=== PATIENT | female | born 1950 | race Caucasian/White ===

== ENCOUNTER → 2018-04-28 | Outpatient (CLI) | payer BC ==
--- NOTE | 2018-04-28 15:10 | KCIC ---
EXAM: Dual energy x-ray absorptiometry (DEXA). HISTORY: Postmenopausal female presents for osteoporosis screening. COMPARISON: None. TECHNIQUE: Dual energy x-ray absorptiometry of the lumbar spine and left hip was performed. Calculation of bone mineral density based on standard deviations above or below the expected young adult normal value (T-score) was completed. FINDINGS: The average bone mineral density in the 1st through 4th lumbar vertebrae is 1.095 g/cmxcm, corresponding with a T-score of 0.4. The average total bone mineral density in the left hip is 0.875 g/cmxcm, corresponding with a T-score of -0.6. IMPRESSION: Normal bone mineral density. Note: Definitions established by the World Health Organization: 1. Normal: T-score is -1.0 or above. 2. Osteopenia: T-score is between -1.0 and -2.5 . 3. Osteoporosis: T-score is -2.5 or below. Electronically signed by: Graciela Flanagan MD (04/28/2018 3:06 PM) [email or web address]
--- NOTE | 2018-04-28 16:21 | KCIC ---
Bilateral digital screening mammograms with 3-D tomosynthesis: Reason for examination: Routine screening. Comparison is made to previous studies dated 08/18/2012 and 08/05/2012. Bilateral mammograms in CC and oblique projections were obtained with 2-D imaging and 3-D tomosynthesis imaging on a Siemens Inspiration unit and reviewed on the workstation. Interpretation was made with the benefit of CAD. The skin and nipples show no abnormalities. No abnormal axillary lymph nodes are seen. The breast parenchyma is heterogeneously dense. (Breast density: Category C.) There continues to be a small nodule consistent with an intramammary lymph node at the 10:00 B position of the right breast. There are no new dominant masses, suspicious calcifications or architectural distortion. Impression: No evidence of malignancy. Recommend routine screening. Your patient's mammogram demonstrates that she has dense breast tissue (breast density category C or D), which could hide abnormalities, and if she has other risk factors for breast cancer that have been identified, she might benefit from supplemental screening tests that may be suggested by you as her ordering physician. Dense breast tissue, in and of itself, is a relatively common condition. Therefore, this information is not provided to cause undue concern, but rather to raise your awareness and to promote discussion with your patient regarding the presence of other risk factors, in addition to dense breast tissue. Your patient's mammography results will be sent to her. BI-RAD Category 2: Benign. "Our facility is accredited by the [employer] Mammography [employer]." This patient's information has been entered into a reminder system for the patient to be notified with the results of her examination and a target date for the next mammogram. Electronically signed by: Farnaz Holley MD (04/28/2018 4:17 PM) [facility]
== END | disposition home or self-care (01) ==
LOC: KCIC DEXA 13:50
PROVIDERS: ATTEND Family Medicine
DX: Z12.31 Encounter for screening mammogram for malignant neoplasm of breast (principal); Z13.820 Encounter for screening for osteoporosis; Z78.0 Asymptomatic menopausal state
CPT/HCPCS: 77063; 77067; 77080

== ENCOUNTER → 2019-10-12 | Outpatient (CLI) | payer BC ==
--- NOTE | 2019-10-12 14:27 | KCIC ---
Bilateral digital screening mammograms Reason for examination: Routine screening Comparison is made to previous study dated mammogram April 28, 2018 and priors Routine CC and MLO digital views obtained. Interpretation was made with the benefit of CAD. The skin and nipples show no abnormalities. No abnormal axillary lymph nodes are seen. The breast parenchyma is heterogeneously dense. (Breast density: Category C.) There are no suspicious masses, suspicious calcifications or architectural distortion. Benign calcifications. At the left outer breast 5 cm from the nipple there is mild glandular nodular asymmetry stable to prior studies. On the left MLO view retroareolar breast 9 cm from the nipple there is a subcentimeter nodular asymmetry, which may correspond to a subtle nodular density on the CC view. Impression: Possible small nodular asymmetry of the left breast. Further assessment with a diagnostic mammography with ML view, and spot compression CC and MLO views, as well as left breast ultrasound is advised. ?Your patient's mammogram demonstrates that she has dense breast tissue (breast density category C or D), which could hide abnormalities, and if she has other risk factors for breast cancer that have been identified, she might benefit from supplemental screening tests that may be suggested by you as her ordering physician. Dense breast tissue, in and of itself, is a relatively common condition. Therefore, this information is not provided to cause undue concern, but rather to raise your awareness and to promote discussion with your patient regarding the presence of other risk factors, in addition to dense breast tissue. Your patient's mammography results will be sent to her. BI-RAD Category 0: Complete examination. "Our facility is accredited by the [employer] Mammography [employer]." This patient's information has been entered into a reminder system for the patient to be notified with the results of her examination and a target date for the next mammogram. Electronically signed by: Caden Abdalla MD (10/12/2019 2:24 PM) [email or web address]
== END | disposition home or self-care (01) ==
LOC: KCIC MAMMO 13:01
PROVIDERS: ATTEND Family Medicine
DX: Z12.31 Encounter for screening mammogram for malignant neoplasm of breast (principal); N64.89 Other specified disorders of breast
CPT/HCPCS: 77067

== ENCOUNTER → 2019-11-16 | Outpatient (CLI) | payer BC ==
--- NOTE | 2019-11-16 17:13 | KCIC ---
Left breast diagnostic digital mammograms: Reason for examination: Parenchymal asymmetry on screening mammographic exam. Comparison is made to previous examination dated 10/12/2019. True lateral and coned compression views in CC and oblique projections were obtained. The nodularity seen posterior superiorly in the left breast persists on lateral view but appears to improve with coned compression views. This probably represents superimposed tissues but further evaluation with ultrasound will follow. IMPRESSION: Asymmetry persists on lateral projection but probably represents superimposed tissues. Ultrasound to follow. BI-RADS Category 0: Incomplete. Needs additional imaging evaluation. Left breast ultrasound: Left whole breast ultrasound including evaluation of all 4 quadrants and the retroareolar and axillary regions of the left breast was performed. There is some patchy fibrocystic type change in the 4:00 position 5 cm from the nipple. At the 5:00 position 3 cm from the nipple however there is a hypoechoic 8.2 mm nodule with some irregular margination and some mild posterior acoustic shadowing. Further evaluation with ultrasound-guided biopsy should be considered. There appears to be some cystic ductal ectasia in the retroareolar position. No abnormality seen to correspond to the area of asymmetry seen posteriorly and this probably reflects some superimposition of tissues mammographically. No suspicious appearing lymph nodes are seen in the axilla. IMPRESSION: Small 8.2 mm nodule at the 5:00 position 3 cm from the nipple with irregular margination suggestion of some mild posterior acoustic enhancement. Small malignancy cannot be excluded and further evaluation with ultrasound-guided biopsy is recommended. BI-RADS Category 4: Suspicious. These findings were discussed with the patient and the patient was instructed to follow-up with her physician and the patient's physician, Dr. Yuan, will be notified about these findings when the office reopens in the morning. "Our facility is accredited by the [employer] Mammography [employer]." This patient's information has been entered into a reminder system for the patient to be notified with the results of her examination and a target date for the next mammogram. Electronically signed by: Farnaz Holley MD (11/16/2019 5:10 PM) [email or web address]
== END | disposition home or self-care (01) ==
LOC: KCIC MAMMO 09:34
PROVIDERS: ATTEND Family Medicine
DX: R92.8 Other abnormal and inconclusive findings on diagnostic imaging of breast (principal); N63.23 Unspecified lump in the left breast, lower outer quadrant
CPT/HCPCS: 76641; 77065

== ENCOUNTER → 2020-06-06 | Outpatient (CLI) | payer OTHER, MEDICARE ==
--- NOTE | 2020-06-06 17:13 | KCIC ---
Left breast diagnostic digital mammograms: Reason for examination: Follow-up benign biopsy. Comparison is made to previous studies dated back to 04/28/2018. Interpretation was made with the benefit of CAD. The skin and nipple show no abnormalities. No abnormal axillary lymph nodes are seen. The breast pare nchyma is heterogeneously dense. (Breast density: Category C.) There is a biopsy clip in the 3:00 pos ition anteriorly in the left breast. There are no new dominant masses, suspicious calcifications or a rchitectural distortion. Impression: No evidence of malignancy. Ultrasound to follow. Your patient's mammogram demonstrates that she has dense breast tissue (breast density category C or D), which could hide abnormalities, and if she has other risk factors for breast cancer that have bee n identified, she might benefit from supplemental screening tests that may be suggested by you as her ordering physician. Dense breast tissue, in and of itself, is a relatively common condition. Therefo re, this information is not provided to cause undue concern, but rather to raise your awareness and t o promote discussion with your patient regarding the presence of other risk factors, in addition to d ense breast tissue. Your patient's mammography results will be sent to her. BI-RAD Category 0: Incomplete. Needs additional imaging evaluation. Left breast ultrasound: Ultrasound examination of the left breast was performed with attention to the area of previous biopsy and the left axilla. At the 5:00 position 3 cm from the nipple, there continues to be a hypoechoic nodule measuring approx imately 8.7 mm in greatest dimension which is unchanged. Biopsy clip is present at the site. There al so continues to be a small hypoechoic 3.5 mm lesion in the retroareolar position which appears to lynda w a slight decrease in size and may represent a small complicated cyst. No abnormal appearing lymph n odes are seen in the axilla. IMPRESSION: No significant change evident in the nodule at the 5:00 position. Continued presence of a small hypoe choic lesion probably representing a complicated cyst in the retroareolar position. Recommend routine mammographic follow-up. BI-RADS Category 2: Benign. "Our facility is accredited by the [employer] Mammography [employer]." This patient's information has been entered into a reminder system for the patient to be notified wit h the results of her examination and a target date for the next mammogram. Electronically signed by: Farnaz Holley MD (06/06/2020 5:10 PM) [id number]
== END ==
LOC: KCIC MAMMO 12:55
PROVIDERS: ATTEND Family Medicine
DX: R92.8 Other abnormal and inconclusive findings on diagnostic imaging of breast (principal); N63.23 Unspecified lump in the left breast, lower outer quadrant
CPT/HCPCS: 76641; 77065